=== PATIENT | female | born 1955 | race Caucasian/White ===

== ENCOUNTER 2016-11-05 10:53 | Emergency (ER) ==
[2016-11-05 11:01] VITALS: BP 152/100; TEMP 99; BMI 18.6
--- NOTE | 2016-11-05 11:11 | ED.PDOC ---
General ED Provider: Dr. DEANDRE EGAN JR Chief Complaint: Foot Pain/Injury Stated Complaint: fell 1 week ago and has pain to left foot and all the way up the leg. [ End ] 99.0 89 20 97% 152/100 03/14 had x rays yesterday at [facility] but has not gotten any results[End]"I really don't have a doctor" Time Seen by Physician: 11:10 Mode of Arrival: Walk-In Information Source: Patient Exam Limitations: No limitations Primary Care Provider: MARY BARLOW Nursing and Triage Documentation Reviewed and Agree: No Review of Systems - Review Of Systems Constitutional: Reports: No symptoms Eyes: Reports: No symptoms Ears, Nose, Mouth, Throat: Reports: No symptoms Respiratory: Reports: No symptoms Cardiac: Reports: No symptoms GI: Reports: No symptoms : Reports: No symptoms Musculoskeletal: Reports: Joint pain Skin: Reports: No symptoms Neurological: Reports: No symptoms Endocrine: Reports: No symptoms Hematologic/Lymphatic: Reports: No symptoms All Other Systems: Other Past Medical History - Past Medical History Endocrine: Reports: None Cardiovascular: Reports: [place], Hypertension Respiratory: Reports: None Hematological: Reports: None Gastrointestinal: Reports: None Genitourinary: Reports: None Neuro/Psych: Reports: TIA (x2) Musculoskeletal: Reports: Joint Pain (fall one week ago xras yesterday tried hydrocodone- make me strange) Cancer: Reports: Colon Last Menstrual Period: none - Surgical History General Surgical History: Reports: Other (colon ca half of colon removed- chronic diarrhea since) - Family History Family History: Reports: Unknown - Social History Smoking Status: Current every day smoker, Light tobacco smoker Hx Substance Use: No Alcohol Screening: Occasionally Physical Exam - Physical Exam Appearance: Well-appearing, Thin Pain Distress: Mild Eyes: ALIZA, EOMI, Conjunctiva clear ENT: Ears normal, Nose normal, Oropharynx normal Neck: Supple Respiratory: Airway patent, Breath sounds clear, Breath sounds equal, Respirations nonlabored Cardiovascular: RRR, Pulses normal, No rub, No murmur GI/: Soft, Nontender, No masses, Bowel sounds normal, No Organomegaly Musculoskeletal: Normal strength, ROM intact, No edema, No calf tenderness ( tender right foot nonfocal ankle nontender ant thigh tender) Skin: Warm, Dry, Normal color Neurological: Sensation intact, Motor intact, Reflexes intact, Cranial nerves intact, Alert, Oriented Psychiatric: Anxious Critical Care Note - Critical Care Note Total Time (mins): 0 Course - Course Orders, Labs, Meds: Orders Category Date Time Status LUIGI [TREATMENT ORDER:NURSING] ONCE CARE 11/05/16 11:23 Active LUIGI [ED LUIGI WRAP] .ONCE EMERGENCY 11/05/16 11:23 Active CRUTCHES [ED CRUTCHES] .ONCE EMERGENCY 11/05/16 11:51 Active ED CRUTCHES .ONCE EMERGENCY 11/05/16 11:17 Active Naproxen [Naprosyn] MEDS 11/05/16 11:24 Discontinued 500 mg PO ONCE STA FOOT, LEFT 3 VIEWS Stat RADS 11/05/16 11:12 Completed PELVIS & ROSALEE HIPS Stat RADS 11/05/16 11:17 Completed Medications Discontinued Medications Generic Name Dose Route Start Last Admin Trade Name Freq PRN Reason Stop Dose Admin Naproxen 500 mg 11/05/16 11:24 11/05/16 11:36 Naprosyn PO 11/05/16 11:25 500 mg ONCE STA Administration Vital Signs: Temp Pulse Resp BP Pulse Ox 11/05/16 10:53 99.0 F 89 20 152/100 H 97 Departure - Departure Time of Disposition: 12:34 Disposition: HOME SELF-CARE Discharge Problem: Injury of foot Instructions: Foot Contusion (ED) Condition: Good Pt referred to PMD for follow-up: Yes Additional Instructions: no weight for two to three days motrin for pain recheck PMD discuss RSD(NO evidence at this exam)((Reflex sympathetic dystrophy) ) ice 20 minutes three times a day no need to elevate unless swelling Prescriptions: Naproxen [Naprosyn] 500 mg PO Q12HR PRN #30 tablet PRN Reason: PAIN Allergies/Adverse Reactions: Allergies No Known Allergies Allergy (Verified 11/05/16 10:58) Home Medications: Ambulatory Orders Naproxen [Naprosyn] 500 mg PO Q12HR PRN #30 tablet 11/05/16
[2016-11-05] MEDS ORDERED: NAPROSYN PO STA (11:24)
--- NOTE | 2016-11-05 11:44 | DI ---
Exam: Left foot three-view HISTORY: Injury and pain Findings / impression: No bony or articular abnormality. Negative exam.
--- NOTE | 2016-11-05 11:45 | DI ---
Exam: Pelvis one-view, bilateral hips two views HISTORY Injury and pain Findings / impression: No the bony or articular abnormalities are seen. Mild, symmetric bilateral hip osteoarthritic change. Pelvic ring is intact.
== END 2016-11-05 13:00 | disposition home or self-care (01) ==
LOC: ED 10:53
DX: S90.32XA Contusion of left foot, initial encounter (principal); M79.605 Pain in left leg; W19.XXXA Unspecified fall, initial encounter; F17.210 Nicotine dependence, cigarettes, uncomplicated
CPT/HCPCS: 99283

== ENCOUNTER 2017-10-11 21:47 | Outpatient (CLI) | END 2017-10-11 21:48 | disposition short-term general hospital (02) | LOC: AMBL 21:47 | PROVIDERS: ATTEND Emergency Medicine | DX: R55 Syncope and collapse (principal); I10 Essential (primary) hypertension; R42 Dizziness and giddiness; I25.2 Old myocardial infarction; Z86.73 Personal history of transient ischemic attack (TIA), and cerebral infarction without residual deficits ==

== ENCOUNTER 2018-06-04 09:11 | Outpatient (CLI) | END 2018-06-04 09:28 | disposition short-term general hospital (02) | LOC: AMBL 09:11 | PROVIDERS: ATTEND Internal Medicine | DX: R42 Dizziness and giddiness (principal); R55 Syncope and collapse; R11.10 Vomiting, unspecified; H55.00 Unspecified nystagmus ==

== ENCOUNTER 2018-06-05 02:22 | Outpatient (CLI) | END 2018-06-06 02:37 | disposition short-term general hospital (02) | LOC: AMBL 02:22 | PROVIDERS: ATTEND Family Medicine | DX: R42 Dizziness and giddiness (principal); R55 Syncope and collapse; R11.0 Nausea ==